=== PATIENT | female | born 1935 | race Two or more races ===

== ENCOUNTER 2020-09-11 08:00 | Outpatient (CLI) | payer OTHER ==
[~2020-09-11 08:00] MED LIST: APOKYN; EXELON6 MG; NAMENDA10 MG
== END 2020-09-11 08:30 | disposition home or self-care (01) ==
LOC: PPH VACUNA 08:00
DX: Z23 Encounter for immunization (principal)

== ENCOUNTER 2020-10-02 15:00 | Outpatient (CLI) | payer OTHER | END 2020-10-02 15:01 | disposition home or self-care (01) | LOC: PPH VACUNA 15:00 | DX: Z23 Encounter for immunization (principal) ==

== ENCOUNTER 2022-09-27 10:01 | Emergency (ER) | payer OTHER ==
[~2022-09-27] VITALS: Ht 167.6 cm; Wt 90.7 kg
== END 2022-09-27 18:29 | disposition home or self-care (01) ==
LOC: ER 10:01
DX: G30.8 Other Alzheimer's disease (principal); F02.80 Dementia in other diseases classified elsewhere, unspecified severity, without behavioral disturbance, psychotic disturbance, mood disturbance, and anxiety; N39.0 Urinary tract infection, site not specified; Z20.822 Contact with and (suspected) exposure to COVID-19
CPT/HCPCS: 36415; 70450; 71045; 82803; 93005; 94640; 96365; 96366; 99284; J0696; J7030